=== PATIENT | female | born 1985 | race Caucasian/White ===

== ENCOUNTER 2019-01-24 15:43 | Emergency (ER) | payer MEDICAID ==
[~2019-01-24] VITALS: Ht 162.6 cm; Wt 94.8 kg
[2019-01-24 15:59] VITALS: BP 133/67; Ht 162.6 cm; Wt 94.8 kg
== END 2019-01-24 18:32 | disposition home or self-care (01) ==
LOC: ED 15:43
DX: R21 Rash and other nonspecific skin eruption (principal); R61 Generalized hyperhidrosis; N89.8 Other specified noninflammatory disorders of vagina